=== PATIENT | male | born 1955 | race African-American/Black ===

== ENCOUNTER 2016-10-23 11:17 | Emergency (ER) | payer OTHER ==
[2016-10-23 11:39] VITALS: BP 156/89; PULSE 93; TEMP 98.7; BMI 34.0
--- NOTE | 2016-10-23 12:37 | PDOC ---
History of Present Illness - General Chief Complaint: Substance Abuse Stated Complaint: DETOX Time Seen by Provider: 10/23/16 11:56 History Source: Patient Exam Limitations: No Limitations - History of Present Illness Initial Comments: 10/23/16 12:46 61-year-old male presents to the ER for heroin detox program. patient states smokes daily and has high blood pressure but takes his medication daily and has no complaints presently of chest pain, shortness of breath, headache, dizziness , abdominal pain, vomiting, or diarrhea. Patient states has been using intranasal heroin for numerous years and at this point wants to stop using and requesting a program. Associated Symptoms: reports: denies symptoms Past History - Past Medical History Allergies/Adverse Reactions: Allergies Allergy/AdvReac Type Severity Reaction Status Date / Time No Known Allergies Allergy Unverified 10/23/16 11:35 Home Medications: Ambulatory Orders Aspirin [ASA -] 81 mg PO DAILY 07/03/15 Nifedipine [Procardia] 10 mg PO DAILY 07/03/15 HTN: Yes Other medical history: heroin abuse - Psycho/Social/Smoking Cessation Hx Anxiety: No Suicidal Ideation: No Smoking History: Current every day smoker Have you smoked in the past 12 months: Yes Number of Cigarettes Smoked Daily: 10 Information on smoking cessation initiated: Yes 'Breaking Loose' booklet given: 10/23/16 Hx Alcohol Use: No Drug/Substance Use Hx: Yes (heroin daily) Substance Use Type: Alcohol, Heroin Patient Lives Alone: No Lives with/in: spouse/SO Review of Systems - Review of Systems Able to Perform ROS?: Yes Constitutional: No: Symptoms Reported HEENTM: No: Symptoms Reported Respiratory: No: Symptoms reported Cardiac (ROS): No: Symptoms Reported ABD/GI: No: Symptoms Reported : No: Symptoms Reported Musculoskeletal: No: Symptoms Reported Integumentary: No: Symptoms Reported Neurological: No: Symptoms reported *Physical Exam - Vital Signs Last Vital Signs Temp Pulse Resp BP Pulse Ox 98.7 F 93 H 18 156/89 92 L 10/23/16 11:36 10/23/16 11:36 10/23/16 11:36 10/23/16 11:36 10/23/16 11:36 - Physical Exam General Appearance: Yes: Nourished, Appropriately Dressed. No: Apparent Distress HEENT: positive: EOMI, BETH. negative: Pale Conjunctivae Respiratory/Chest: positive: Lungs Clear, Normal Breath Sounds. negative: Respiratory Distress, Accessory Muscle Use Cardiovascular: positive: Regular Rhythm, Regular Rate. negative: Murmur Musculoskeletal: negative: CVA Tenderness Extremity: positive: Normal Capillary Refill. negative: Pedal Edema Integumentary: positive: Normal Color, Warm, Moist Neurologic: positive: Motor Strength 5/5 (ambulatory) Medical Decision Making - Medical Decision Making 10/23/16 12:51 Patient here requesting detox from intranasal heroin use. Patient has no complaints presently so called over to [facility] and states they have a male bed. Patient will be sent over via security. *DC/Admit/Observation/Transfer Diagnosis at time of Disposition: Heroin abuse - Discharge Dispostion Disposition: I.P. ALCOHOL/SUBS ABUSE REHAB Condition at time of disposition: Good - Patient Instructions Printed Discharge Instructions: Chemical Dependency (Narcotic) (Alternative Therapy) Additional Instructions: Please utilize the support that you will receive in this program.
== END 2016-10-23 13:12 | disposition other institution (70) ==
LOC: JER 11:17
DX: F11.10 Opioid abuse, uncomplicated (principal); I10 Essential (primary) hypertension
CPT/HCPCS: 99281-25

== ENCOUNTER 2016-10-23 12:53 | Inpatient (IN) | payer OTHER ==
[2016-10-23 13:44] VITALS: BMI 37.5
--- NOTE | 2016-10-23 14:31 | HP ---
COWS - Scale Resting Pulse: 1= [place] 81-100 Sweatin=Flushed/Facial Moisture Restless Observation: 1= Difficult to Sit Still Pupil Size: 0= Normal to Room Light Bone or Joint Aches: 2= Severe Diffuse Aches Runny Nose/ Eye Tearin= Runny Nose/Eyes GI Upset > 30mins: 0= None Tremor Observation: 2= Slight Tremor Visible Yawning Observation: 2= >3x During Session Anxiety or Irritability: 2=Irritable/Anxious Goose Flesh Skin: 0=Smooth Skin COWS Score: 14 CIWA Score - CIWA Score Nausea/Vomitin-No Nausea/No Vomiting Muscle Tremors: 4-Moderate,w/Arms Extend Anxiety: 4-Mod. Anxious/Guarded Agitation: 4-Moderately Restless Paroxysmal Sweats: 3 Orientation: 0-Oriented Tacttile Disturbances: 0-None Auditory Disturbances: 0-None Visual Disturbances: 0-None Headache: 0-None Present CIWA-Ar Total Score: 15 Admission ROS S - HPI Chief Complaint: I am here to detox. Allergies/Adverse Reactions: Allergies Allergy/AdvReac Type Severity Reaction Status Date / Time No Known Allergies Allergy Unverified 10/23/16 14:12 History of Present Illness: pt is a 61yr old male with a history of heroin and xanax seeking detox for treatment Exam Limitations: No Limitations - Ebola screening Have you traveled outside of the country in the last 21 days: No Have you had contact with anyone from an Ebola affected area: No Have you been sick,other than usual withdrawal symptoms: No - Review of Systems Constitutional: Chills, Diaphoresis, Night Sweats, Changes in sleep EENT: reports: Tearing Respiratory: reports: No Symptoms reported Cardiac: reports: No Symptoms Reported GI: reports: Poor Fluid Intake, Indigestion : reports: No Symptoms Reported Musculoskeletal: reports: Back Pain Integumentary: reports: Flushing, Sweating Neuro: reports: Tingling, Tremors Endocrine: reports: Excessive Sweating, Flushing, Intolerance to Cold, Intolerance to Heat Hematology: reports: No Symptoms Reported Psychiatric: reports: Judgement Intact, Mood/Affect Appropiate, Orientated x3, Agitated, Anxious Other Systems: Reviewed and Negative Patient History - Patient Medical History Hx Anemia: No Hx Asthma: No Hx Chronic Obstructive Pulmonary Disease (COPD): No Hx Cancer: No Hx Cardiac Disorders: No Hx Congestive Heart Failure: No Hx Hypertension: Yes Hx Hypercholesterolemia: Yes Hx Pacemaker: No HX Cerebrovascular Accident: No Hx Seizures: No Hx Dementia: No Hx Diabetes: No Hx Gastrointestinal Disorders: No Hx Liver Disease: No Hx Genitourinary Disorders: No Hx Sexually Transmitted Disorders: No Hx Renal Disease (ESRD): No Hx Thyroid Disease: No Hx Human Immunodeficiency Virus (HIV): Yes (diagnosed 1995 undetectable gemvoya. ) Hx Hepatitis C: No Hx Depression: No Hx Suicide Attempt: Yes (denies) Hx Bipolar Disorder: No Hx Schizophrenia: No - Patient Surgical History Hx Abdominal Surgery: Yes (UMBILICAL HERNIA) - PPD History Previous Implant?: Yes Documented Results: Negative w/o proof Implanted On Prior [facility] Admission?: No PPD to be Administered?: Yes - Reproductive History Patient is a Female of Child Bearing Age (11 -55 yrs old): No - Smoking Cessation Smoking history: Current every day smoker Have you smoked in the past 12 months: Yes Aproximately how many cigarettes per day: 10 Hx Chewing Tobacco Use: No Initiated information on smoking cessation: Yes 'Breaking Loose' booklet given: 10/23/16 - Substance & Tx. History Hx Alcohol Use: No Hx Substance Use: Yes Substance Use Type: Heroin, Tranquilizers Hx Substance Use Treatment: Yes - Substances Abused Heroin Route: Inhalation Frequency: Daily Amount used: 10-20 BAGS Age of first use: 14 Date of Last Use: 10/23/16 Alprazolam (Xanax) Route: Oral Frequency: Daily Amount used: 4-6MG Age of first use: 61 Date of Last Use: 10/22/16 Family Disease History - Family Disease History Family Disease History: Heart Disease: Mother () Admission Physical Exam [facility] - Vital Signs Vital Signs: Vital Signs - 24 hr 10/23/16 13:42 Temperature 98 F Pulse Rate 90 Respiratory 20 Rate Blood Pressure 162/95 - Physical General Appearance: Yes: Appropriately Dressed, Moderate Distress, Obese, Tremorous, Irritable, Sweating, Anxious HEENTM: Yes: Hearing grossly Normal, Normal Voice, Nasal Congestion Respiratory: Yes: Lungs Clear, Normal Breath Sounds, No Respiratory Distress Neck: Yes: No masses,lesions,Nodules Breast: Yes: Within Normal Limits Cardiology: Yes: Regular Rhythm, Regular Rate, S1, S2 Abdominal: Yes: Normal Bowel Sounds, Non Tender, Soft Genitourinary: Yes: Within Normal Limits Back: Yes: Normal Inspection Musculoskeletal: Yes: Back pain Extremities: Yes: Normal Capillary Refill, Normal Inspection, Non-Tender, Tremors Neurological: Yes: Fully Oriented, Alert, Normal Response Integumentary: Yes: Diaphoresis Lymphatic: Yes: Within Normal Limits - Diagnostic (1) Opioid dependence with withdrawal Current Visit: Yes Status: Chronic (2) Sedative, hypnotic or anxiolytic dependence with withdrawal, uncomplicated Current Visit: Yes Status: Chronic (3) Nicotine dependence Current Visit: Yes Status: Chronic Qualifiers: Nicotine product type: cigarettes Substance use status: uncomplicated Qualified Code(s): F17.210 - Nicotine dependence, cigarettes, uncomplicated (4) HIV disease Current Visit: Yes Status: Chronic Comment: pt is taking gemboya pt will bring in his own medication (5) Hypertension Current Visit: Yes Status: Chronic Qualifiers: Hypertension type: essential hypertension Qualified Code(s): I10 - Essential (primary) hypertension (6) Hyperlipidemia Current Visit: Yes Status: Chronic Qualifiers: Hyperlipidemia type: unspecified Qualified Code(s): E78.5 - Hyperlipidemia, unspecified Cleared for Admission [facility] - Detox or Rehab [facility] Level of Care: Medically Managed Detox Regimen/Protocol: Methadone/Valium [facility] Breath Alcohol Content Breath Alcohol Content: 0 Urine Drug Screen - Results Drug Screen Negative: No Urine Drug Screen Results: OPI-Opiates, BZO-Benzodiazepines, OXY-Oxycodone
[2016-10-23] MEDS ORDERED: guaiFENesin/D-METHORPHAN HB 10 ML UNIT-DOSE CUPS PO PRN (14:40)
[2016-10-23] MEDS ORDERED: MENTHOL/PHENOL 1 EACH UD MM PRN (14:40)
[2016-10-23] MEDS ORDERED: MAGNESIUM CITRATE 300 ML BOTTLE PO PRN (14:40)
[2016-10-23] MEDS ORDERED: NICOTINE POLACRILEX 4 MG GUM BUC PRN (14:40)
[2016-10-23] MEDS ORDERED: P-EPHED 60MG/TRIPROLIDI 2.5MG TABLET PO PRN (14:40)
[2016-10-23] MEDS ORDERED: MAGNESIUM HYDROX 2400MG/30ML ORAL SUSPENSION 30 ML CUP PO PRN (14:40)
[2016-10-23] MEDS ORDERED: MAG HYDROX/AL HYDROX/SIMETH 30 ML UNIT-DOSE CUP PO PRN (14:40)
[2016-10-23] MEDS ORDERED: LOPERAMIDE HCL 2 MG CAPSULE PO PRN (14:40)
[2016-10-23] MEDS ORDERED: ACETAMINOPHEN 325 MG TABLET (FP) PO PRN (14:40)
[2016-10-23] MEDS ORDERED: diazePAM 5 MG TABLET PO ONE (15:30)
[2016-10-23] MEDS ORDERED: METHADONE HCL 10 MG TABLET (FOR DETOX USE ONLY) PO ONE ×2 (15:32→23:00)
[2016-10-23 18:58] LABS: URINE APPEARANCE CLEAR; URINE BILIRUBIN NEGATIVE (NEGATIVE); URINE BLOOD NEGATIVE (NEGATIVE); URINE COLOR YELLOW; URINE GLUCOSE (UA) NEGATIVE (NEGATIVE); URINE KETONE NEGATIVE (NEGATIVE); URINE LEUK ESTERASE NEGATIVE (NEGATIVE); URINE NITRITE NEGATIVE (NEGATIVE); URINE PROTEIN NEGATIVE (NEGATIVE); URINE UROBILINOGEN 2.0 E.U/dl E.U./dl (0.2-1.0)
[2016-10-23] MEDS: THIAMINE HCL 100 MG TABLET (FP) PO SCH (22:36)
[2016-10-23] MEDS: diphenhydrAMINE HCL 50 MG CAPSULE PO PRN (22:37)
[2016-10-23] MEDS: diazePAM 5 MG TABLET PO SCH (22:37)
[2016-10-24] MEDS: diazePAM 5 MG TABLET PO SCH ×3 (05:39→22:34)
[2016-10-24] MEDS: diazePAM 5 MG TABLET PO PRN ×3 (07:15→17:32)
[2016-10-24] MEDS ORDERED: METHADONE HCL 10 MG TABLET (FOR DETOX USE ONLY) PO SCH (10:00)
[2016-10-24 10:14] LABS: MCH 31.7 pg (25.7-33.7); MCHC 32.4 g/dl (32.0-35.9); MEAN PLT VOLUME 8.9 fl (7.5-11.1); PLATELET COUNT 177 K/MM3 (134-434); RDW 14.1 % (11.9-15.9); WHITE BLOOD COUNT 7.2 K/mm3 (4.0-10.0)
[2016-10-24 10:15] LABS: ALBUMIN 3.5 g/dl (3.4-5.0); BILIRUBIN,TOTAL 0.6 mg/dL (0.2-1.0); CALCIUM 8.9 mg/dL (8.5-10.1); COCKROFT - GAULT 99.7; CREATININE 1.3 mg/dL (0.7-1.3); TOT PROT 7.1 g/dl (6.4-8.2)
[2016-10-24] MEDS: NICOTINE 21 MG/24 HOURS TOPICAL PATCH TD SCH (10:29)
[2016-10-24] MEDS: PRENATAL VITAMINS W/ FOLIC ACID TABLET (FP) PO SCH (10:29)
[2016-10-24] MEDS: ASPIRIN 81 MG CHEWABLE TABLETS PO SCH (10:29)
[2016-10-24] MEDS: LOSARTAN 50MG/HCTZ 12.5MG 1 TAB (FP) PO SCH (10:29)
--- NOTE | 2016-10-24 11:26 | PN ---
[facility] CIWA - CIWA Score Nausea/Vomitin-No Nausea/No Vomiting Muscle Tremors: 4-Moderate,w/Arms Extend Anxiety: 4-Mod. Anxious/Guarded Agitation: 4-Moderately Restless Paroxysmal Sweats: 1-Minimal Palms Moist Orientation: 0-Oriented Tacttile Disturbances: 3-Moderate Itch/Numb/Burn Auditory Disturbances: 0-None Visual Disturbances: 0-None Headache: 0-None Present CIWA-Ar Total Score: 16 [facility] COWS - Scale Resting Pulse: 1= SD 81-100 Sweatin= Chills/Flushing Restless Observation: 3= Extraneous Movement Pupil Size: 2= Moderately Dilated Bone or Joint Aches: 4=Acute Joint/Muscle Pain Runny Nose/ Eye Tearin= Nasal Congestion GI Upset > 30mins: 1= Stomach Cramp Tremor Observation of Outstretched Hands: 1= Tremor [place], Not Seen Yawning Observation: 1= 1-2x During Session Anxiety or Irritability: 2=Irritable/Anxious Goose Flesh Skin: 0=Smooth Skin COWS Score: 17 [facility] Progress Note (SOAP) Subjective: ANXIETY,SWEATS,RUNNY NOSE,IRRITABILITY. Objective: 10/24/16 11:25 Vital Signs Temperature 96.7 F L 10/24/16 09:43 Pulse Rate 89 10/24/16 09:43 Respiratory Rate 18 10/24/16 09:43 Blood Pressure 152/94 10/24/16 09:43 O2 Sat by Pulse Oximetry (%) Laboratory Last Values WBC 7.2 K/mm3 (4.0-10.0) 10/24/16 06:00 RBC 4.49 M/mm3 (4.00-5.60) 10/24/16 06:00 Hgb 14.2 GM/dL (11.7-16.9) 10/24/16 06:00 Hct 44.0 % (35.4-49) 10/24/16 06:00 MCV 98.0 fl (80-96) H 10/24/16 06:00 MCHC 32.4 g/dl (32.0-35.9) 10/24/16 06:00 RDW 14.1 % (11.9-15.9) D 10/24/16 06:00 Plt Count 177 K/MM3 (134-434) 10/24/16 06:00 MPV 8.9 fl (7.5-11.1) 10/24/16 06:00 Sodium 140 mmol/L (136-145) 10/24/16 06:00 Potassium 4.0 mmol/L (3.5-5.1) 10/24/16 06:00 Chloride 102 mmol/L (98-107) 10/24/16 06:00 Carbon Dioxide 32 mmol/L (21-32) 10/24/16 06:00 Anion Gap 6 (8-16) L 10/24/16 06:00 BUN 12 mg/dL (7-18) 10/24/16 06:00 Creatinine 1.3 mg/dL (0.7-1.3) 10/24/16 06:00 Creat Clearance w eGFR 56.50 (>60) 10/24/16 06:00 POC Glucometer 101 UNITS (()) 10/24/16 06:22 Random Glucose 132 mg/dL (74-106) H 10/24/16 06:00 Calcium 8.9 mg/dL (8.5-10.1) 10/24/16 06:00 Total Bilirubin 0.6 mg/dL (0.2-1.0) D 10/24/16 06:00 AST 26 U/L (15-37) 10/24/16 06:00 ALT 41 U/L (12-78) 10/24/16 06:00 Alkaline Phosphatase 102 U/L (45-117) 10/24/16 06:00 Total Protein 7.1 g/dl (6.4-8.2) 10/24/16 06:00 Albumin 3.5 g/dl (3.4-5.0) 10/24/16 06:00 Urine Color Yellow 10/23/16 15:00 Urine Appearance Clear 10/23/16 15:00 Urine pH 7.0 (5.0-8.0) 10/23/16 15:00 Ur Specific [place] 1.015 (1.005-1.025) 10/23/16 15:00 Urine Protein Negative (NEGATIVE) 10/23/16 15:00 Urine Glucose (UA) Negative (NEGATIVE) 10/23/16 15:00 Urine Ketones Negative (NEGATIVE) 10/23/16 15:00 Urine Blood Negative (NEGATIVE) 10/23/16 15:00 Urine Nitrite Negative (NEGATIVE) 10/23/16 15:00 Urine Bilirubin Negative (NEGATIVE) 10/23/16 15:00 Urine Urobilinogen 2.0 e.u/dl E.U./dl (0.2-1.0) 10/23/16 15:00 Ur Leukocyte Esterase Negative (NEGATIVE) 10/23/16 15:00 Assessment: 10/24/16 11:25 WITHDRAWAL SX Plan: CONTINUE DETOX
--- NOTE | 2016-10-24 12:51 | EKG ---
Test Reason : Blood Pressure : / mmHG Vent. Rate : 082 BPM Atrial Rate : 082 BPM P-R Int : 176 ms QRS Dur : 084 ms QT Int : 362 ms P-R-T Axes : 034 -18 019 degrees QTc Int : 422 ms NORMAL SINUS RHYTHM NORMAL ECG WHEN COMPARED WITH ECG OF 03-JUL-2015 15:50, NO SIGNIFICANT CHANGE WAS FOUND Confirmed by IRASEMA UP MD ([id number]) on 10/24/2016 12:50:53 PM Referred By: Confirmed By:IRASEMA UP MD
--- NOTE | 2016-10-24 13:55 | CONSULT ---
[facility] Psychiatric Consult - Data Date of interview: 10/24/16 Admission source: [facility] Identifying data: Patient is appproached at bedside for psychiatric evaluation.Mr Hdz refused. " I have no psychiatric issues.I am fine.Please leave.I don't need your services.Thanks." Nursing staff is made aware.
[2016-10-24] MEDS: THIAMINE HCL 100 MG TABLET (FP) PO SCH (22:34)
[2016-10-24] MEDS: diphenhydrAMINE HCL 50 MG CAPSULE PO PRN (22:34)
[2016-10-24] MEDS: ARTIFICIAL TEARS (POLYVINYL ALCOHOL 1.4%) OPTH DROPS OU SCH (23:01)
[2016-10-24] MEDS: hydrOXYzine PAMOATE 50 MG CAPSULE (FP) PO PRN (23:44)
[2016-10-25] MEDS: diazePAM 5 MG TABLET PO PRN ×3 (00:27→17:18)
[2016-10-25] MEDS ORDERED: CYCLOBENZAPRINE HCL 10 MG TABLET (FP) PO PRN (01:34)
[2016-10-25] MEDS: IBUPROFEN 400 MG TABLET (FP) PO PRN (01:50)
[2016-10-25] MEDS: ASPIRIN 81 MG CHEWABLE TABLETS PO SCH (10:28)
[2016-10-25] MEDS: ARTIFICIAL TEARS (POLYVINYL ALCOHOL 1.4%) OPTH DROPS OU SCH ×4 (10:28→22:35)
[2016-10-25] MEDS: diazePAM 5 MG TABLET PO SCH ×2 (10:28→22:35)
[2016-10-25] MEDS: PRENATAL VITAMINS W/ FOLIC ACID TABLET (FP) PO SCH (10:28)
[2016-10-25] MEDS: METHADONE HCL 5 MG TABLET (FOR DETOX USE ONLY) PO SCH (10:28)
[2016-10-25] MEDS: LOSARTAN 50MG/HCTZ 12.5MG 1 TAB (FP) PO SCH (10:29)
[2016-10-25] MEDS: NICOTINE 21 MG/24 HOURS TOPICAL PATCH TD SCH (10:29)
--- NOTE | 2016-10-25 11:46 | PN ---
[facility] CIWA - CIWA Score Nausea/Vomitin-No Nausea/No Vomiting Muscle Tremors: 4-Moderate,w/Arms Extend Anxiety: 4-Mod. Anxious/Guarded Agitation: 4-Moderately Restless Paroxysmal Sweats: 1-Minimal Palms Moist Orientation: 0-Oriented Tacttile Disturbances: 3-Moderate Itch/Numb/Burn Auditory Disturbances: 0-None Visual Disturbances: 0-None Headache: 0-None Present CIWA-Ar Total Score: 16 S COWS - Scale Resting Pulse: 0= [place] 80 or Below Sweatin= Chills/Flushing Restless Observation: 3= Extraneous Movement Pupil Size: 2= Moderately Dilated Bone or Joint Aches: 4=Acute Joint/Muscle Pain Runny Nose/ Eye Tearin= Nasal Congestion GI Upset > 30mins: 5=Frequent Vomit/Diarrhea Tremor Observation of Outstretched Hands: 1= Tremor [place], Not Seen Yawning Observation: 1= 1-2x During Session Anxiety or Irritability: 2=Irritable/Anxious Goose Flesh Skin: 0=Smooth Skin COWS Score: 20 [facility] Progress Note (SOAP) Subjective: ANXIETY,SWEATS,MUSCLE ACHES. Objective: 10/25/16 11:45 Vital Signs Temperature 97.3 F L 10/25/16 09:26 Pulse Rate 79 10/25/16 09:26 Respiratory Rate 18 10/25/16 09:26 Blood Pressure 143/73 10/25/16 09:26 O2 Sat by Pulse Oximetry (%) Laboratory Last Values WBC 7.2 K/mm3 (4.0-10.0) 10/24/16 06:00 RBC 4.49 M/mm3 (4.00-5.60) 10/24/16 06:00 Hgb 14.2 GM/dL (11.7-16.9) 10/24/16 06:00 Hct 44.0 % (35.4-49) 10/24/16 06:00 MCV 98.0 fl (80-96) H 10/24/16 06:00 MCHC 32.4 g/dl (32.0-35.9) 10/24/16 06:00 RDW 14.1 % (11.9-15.9) D 10/24/16 06:00 Plt Count 177 K/MM3 (134-434) 10/24/16 06:00 MPV 8.9 fl (7.5-11.1) 10/24/16 06:00 Sodium 140 mmol/L (136-145) 10/24/16 06:00 Potassium 4.0 mmol/L (3.5-5.1) 10/24/16 06:00 Chloride 102 mmol/L (98-107) 10/24/16 06:00 Carbon Dioxide 32 mmol/L (21-32) 10/24/16 06:00 Anion Gap 6 (8-16) L 10/24/16 06:00 BUN 12 mg/dL (7-18) 10/24/16 06:00 Creatinine 1.3 mg/dL (0.7-1.3) 10/24/16 06:00 Creat Clearance w eGFR 56.50 (>60) 10/24/16 06:00 POC Glucometer 101 UNITS (()) 10/24/16 06:22 Random Glucose 132 mg/dL (74-106) H 10/24/16 06:00 Calcium 8.9 mg/dL (8.5-10.1) 10/24/16 06:00 Total Bilirubin 0.6 mg/dL (0.2-1.0) D 10/24/16 06:00 AST 26 U/L (15-37) 10/24/16 06:00 ALT 41 U/L (12-78) 10/24/16 06:00 Alkaline Phosphatase 102 U/L (45-117) 10/24/16 06:00 Total Protein 7.1 g/dl (6.4-8.2) 10/24/16 06:00 Albumin 3.5 g/dl (3.4-5.0) 10/24/16 06:00 Urine Color Yellow 10/23/16 15:00 Urine Appearance Clear 10/23/16 15:00 Urine pH 7.0 (5.0-8.0) 10/23/16 15:00 Ur Specific [place] 1.015 (1.005-1.025) 10/23/16 15:00 Urine Protein Negative (NEGATIVE) 10/23/16 15:00 Urine Glucose (UA) Negative (NEGATIVE) 10/23/16 15:00 Urine Ketones Negative (NEGATIVE) 10/23/16 15:00 Urine Blood Negative (NEGATIVE) 10/23/16 15:00 Urine Nitrite Negative (NEGATIVE) 10/23/16 15:00 Urine Bilirubin Negative (NEGATIVE) 10/23/16 15:00 Urine Urobilinogen 2.0 e.u/dl E.U./dl (0.2-1.0) 10/23/16 15:00 Ur Leukocyte Esterase Negative (NEGATIVE) 10/23/16 15:00 RPR Titer Nonreactive (NONREACTIVE) 10/24/16 06:00 Assessment: 10/25/16 11:45 WITHDRAWAL SX Plan: CONTINUE DETOX FLEXERIL DIRECTED
[2016-10-25] MEDS: CYCLOBENZAPRINE HCL 10 MG TABLET (FP) PO SCH ×2 (14:13→22:35)
[2016-10-25] MEDS: hydrOXYzine PAMOATE 50 MG CAPSULE (FP) PO PRN (20:14)
[2016-10-25] MEDS: THIAMINE HCL 100 MG TABLET (FP) PO SCH (22:35)
[2016-10-25] MEDS: diphenhydrAMINE HCL 50 MG CAPSULE PO PRN (22:35)
[2016-10-26] MEDS: diazePAM 5 MG TABLET PO PRN (03:14)
[2016-10-26] MEDS: CYCLOBENZAPRINE HCL 10 MG TABLET (FP) PO SCH ×3 (05:52→22:30)
[2016-10-26] MEDS: PRENATAL VITAMINS W/ FOLIC ACID TABLET (FP) PO SCH (10:34)
[2016-10-26] MEDS: diazePAM 5 MG TABLET PO SCH ×2 (10:34→22:30)
[2016-10-26] MEDS: ASPIRIN 81 MG CHEWABLE TABLETS PO SCH (10:34)
[2016-10-26] MEDS: METHADONE HCL 5 MG TABLET (FOR DETOX USE ONLY) PO SCH (10:35)
[2016-10-26] MEDS: LOSARTAN 50MG/HCTZ 12.5MG 1 TAB (FP) PO SCH (10:36)
[2016-10-26] MEDS: ARTIFICIAL TEARS (POLYVINYL ALCOHOL 1.4%) OPTH DROPS OU SCH ×4 (10:38→22:31)
[2016-10-26] MEDS: NICOTINE 21 MG/24 HOURS TOPICAL PATCH TD SCH (11:09)
[2016-10-26] MEDS ORDERED: hydrOXYzine PAMOATE 50 MG CAPSULE (FP) PO PRN (11:49)
--- NOTE | 2016-10-26 11:49 | PN ---
[facility] Progress Note (SOAP) Subjective: FATIGUE,ANXIETY,SWEATS,INTERMITTENT SLEEP..BENADRYL NOT EFFECTIVE. Objective: 10/26/16 11:48 Vital Signs Temperature 97.8 F 10/26/16 10:25 Pulse Rate 106 H 10/26/16 10:25 Respiratory Rate 18 10/26/16 10:25 Blood Pressure 145/90 10/26/16 10:25 O2 Sat by Pulse Oximetry (%) Assessment: 10/26/16 11:48 WITHDRAWAL SX Plan: CONTINUE DETOX D/C BENADRYL VIASTARIL 100 MG PO HS PRN
[2016-10-26] MEDS: hydrOXYzine PAMOATE 50 MG CAPSULE (FP) PO PRN (17:19)
[2016-10-26] MEDS: THIAMINE HCL 100 MG TABLET (FP) PO SCH (22:30)
[2016-10-26] MEDS: diphenhydrAMINE HCL 50 MG CAPSULE PO PRN (22:30)
[2016-10-27] MEDS: hydrOXYzine PAMOATE 50 MG CAPSULE (FP) PO PRN ×2 (01:51→06:18)
[2016-10-27] MEDS: CYCLOBENZAPRINE HCL 10 MG TABLET (FP) PO SCH ×3 (05:20→22:33)
[2016-10-27] MEDS ORDERED: METHADONE HCL 10 MG TABLET (FOR DETOX USE ONLY) PO SCH (10:00)
[2016-10-27] MEDS ORDERED: diazePAM 5 MG TABLET PO SCH (10:00)
[2016-10-27] MEDS: PRENATAL VITAMINS W/ FOLIC ACID TABLET (FP) PO SCH (10:49)
[2016-10-27] MEDS: ARTIFICIAL TEARS (POLYVINYL ALCOHOL 1.4%) OPTH DROPS OU SCH ×4 (10:49→22:55)
[2016-10-27] MEDS: LOSARTAN 50MG/HCTZ 12.5MG 1 TAB (FP) PO SCH (10:49)
[2016-10-27] MEDS: ASPIRIN 81 MG CHEWABLE TABLETS PO SCH (10:49)
[2016-10-27] MEDS: NICOTINE 21 MG/24 HOURS TOPICAL PATCH TD SCH (10:50)
--- NOTE | 2016-10-27 16:21 | PN ---
[facility] Progress Note (SOAP) Subjective: Interrupted sleep, Sweating. Objective: PT. A & O X 3, OBSERVED AMBULATING ON UNIT. PT. DENIES CHEST PAIN. 10/27/16 16:19 Vital Signs Temperature 98.3 F 10/27/16 13:20 Pulse Rate 89 10/27/16 13:20 Respiratory Rate 20 10/27/16 13:20 Blood Pressure 129/84 10/27/16 13:20 O2 Sat by Pulse Oximetry (%) Laboratory Last Values WBC 7.2 K/mm3 (4.0-10.0) 10/24/16 06:00 RBC 4.49 M/mm3 (4.00-5.60) 10/24/16 06:00 Hgb 14.2 GM/dL (11.7-16.9) 10/24/16 06:00 Hct 44.0 % (35.4-49) 10/24/16 06:00 MCV 98.0 fl (80-96) H 10/24/16 06:00 MCHC 32.4 g/dl (32.0-35.9) 10/24/16 06:00 RDW 14.1 % (11.9-15.9) D 10/24/16 06:00 Plt Count 177 K/MM3 (134-434) 10/24/16 06:00 MPV 8.9 fl (7.5-11.1) 10/24/16 06:00 Sodium 140 mmol/L (136-145) 10/24/16 06:00 Potassium 4.0 mmol/L (3.5-5.1) 10/24/16 06:00 Chloride 102 mmol/L (98-107) 10/24/16 06:00 Carbon Dioxide 32 mmol/L (21-32) 10/24/16 06:00 Anion Gap 6 (8-16) L 10/24/16 06:00 BUN 12 mg/dL (7-18) 10/24/16 06:00 Creatinine 1.3 mg/dL (0.7-1.3) 10/24/16 06:00 Creat Clearance w eGFR 56.50 (>60) 10/24/16 06:00 POC Glucometer 101 UNITS (()) 10/24/16 06:22 Random Glucose 132 mg/dL (74-106) H 10/24/16 06:00 Calcium 8.9 mg/dL (8.5-10.1) 10/24/16 06:00 Total Bilirubin 0.6 mg/dL (0.2-1.0) D 10/24/16 06:00 AST 26 U/L (15-37) 10/24/16 06:00 ALT 41 U/L (12-78) 10/24/16 06:00 Alkaline Phosphatase 102 U/L (45-117) 10/24/16 06:00 Total Protein 7.1 g/dl (6.4-8.2) 10/24/16 06:00 Albumin 3.5 g/dl (3.4-5.0) 10/24/16 06:00 Urine Color Yellow 10/23/16 15:00 Urine Appearance Clear 10/23/16 15:00 Urine pH 7.0 (5.0-8.0) 10/23/16 15:00 Ur Specific [place] 1.015 (1.005-1.025) 10/23/16 15:00 Urine Protein Negative (NEGATIVE) 10/23/16 15:00 Urine Glucose (UA) Negative (NEGATIVE) 10/23/16 15:00 Urine Ketones Negative (NEGATIVE) 10/23/16 15:00 Urine Blood Negative (NEGATIVE) 10/23/16 15:00 Urine Nitrite Negative (NEGATIVE) 10/23/16 15:00 Urine Bilirubin Negative (NEGATIVE) 10/23/16 15:00 Urine Urobilinogen 2.0 e.u/dl E.U./dl (0.2-1.0) 10/23/16 15:00 Ur Leukocyte Esterase Negative (NEGATIVE) 10/23/16 15:00 RPR Titer Nonreactive (NONREACTIVE) 10/24/16 06:00 LABS NOTED. 10/27/16 16:20 Assessment: 10/27/16 16:20 WITHDRAWAL SYMPTOMS. Plan: CONTINUE DETOX. ADVISED PATIENT TO FOLLOW-UP WITH PASSENGER TIRE INSPECTOR AFTER DISCHARGE FROM DETOX FOR GENERAL MEDICAL ASSESSMENT AND FOR ABNORMAL ADMISSION LAB VALUES.
[2016-10-27] MEDS: diphenhydrAMINE HCL 50 MG CAPSULE PO PRN (22:33)
[2016-10-27] MEDS: THIAMINE HCL 100 MG TABLET (FP) PO SCH (22:33)
[2016-10-27] MEDS: IBUPROFEN 400 MG TABLET (FP) PO PRN (22:34)
[2016-10-28] MEDS: CYCLOBENZAPRINE HCL 10 MG TABLET (FP) PO SCH (05:34)
[2016-10-28] MEDS ORDERED: METHADONE HCL 5 MG TABLET (FOR DETOX USE ONLY) PO SCH (06:00)
[2016-10-28 06:40] VITALS: BP 154/87; PULSE 69; TEMP 96.9
--- NOTE | 2016-10-28 15:53 | DS ---
[facility] Detox Discharge Summary Admission Date: 10/23/16 Discharge Date: 10/28/16 - History Present History: Opioid Dependence, Sedative Dependence Additional Comments: ADVISED PATIENT TO FOLLOW-UP WITH [employer] MACHINE WORKER AFTER DISCHARGE FROM DETOX FOR GENERAL MEDICAL ASSESSMENT AND FOR ABNORMAL ADMISSION LAB VALUES. Pertinent Past History: HTN, HIV +, Hypercholesterolemia. - Physical Exam Results Vital Signs: Vital Signs Temperature 96.9 F L 10/28/16 06:40 Pulse Rate 69 10/28/16 06:40 Respiratory Rate 18 10/28/16 06:40 Blood Pressure 154/87 10/28/16 06:40 O2 Sat by Pulse Oximetry (%) Pertinent Admission Physical Exam Findings: WITHDRAWAL SYMPTOMS. Laboratory Last Values WBC 7.2 K/mm3 (4.0-10.0) 10/24/16 06:00 RBC 4.49 M/mm3 (4.00-5.60) 10/24/16 06:00 Hgb 14.2 GM/dL (11.7-16.9) 10/24/16 06:00 Hct 44.0 % (35.4-49) 10/24/16 06:00 MCV 98.0 fl (80-96) H 10/24/16 06:00 MCHC 32.4 g/dl (32.0-35.9) 10/24/16 06:00 RDW 14.1 % (11.9-15.9) D 10/24/16 06:00 Plt Count 177 K/MM3 (134-434) 10/24/16 06:00 MPV 8.9 fl (7.5-11.1) 10/24/16 06:00 Sodium 140 mmol/L (136-145) 10/24/16 06:00 Potassium 4.0 mmol/L (3.5-5.1) 10/24/16 06:00 Chloride 102 mmol/L (98-107) 10/24/16 06:00 Carbon Dioxide 32 mmol/L (21-32) 10/24/16 06:00 Anion Gap 6 (8-16) L 10/24/16 06:00 BUN 12 mg/dL (7-18) 10/24/16 06:00 Creatinine 1.3 mg/dL (0.7-1.3) 10/24/16 06:00 Creat Clearance w eGFR 56.50 (>60) 10/24/16 06:00 POC Glucometer 101 UNITS (()) 10/24/16 06:22 Random Glucose 132 mg/dL (74-106) H 10/24/16 06:00 Calcium 8.9 mg/dL (8.5-10.1) 10/24/16 06:00 Total Bilirubin 0.6 mg/dL (0.2-1.0) D 10/24/16 06:00 AST 26 U/L (15-37) 10/24/16 06:00 ALT 41 U/L (12-78) 10/24/16 06:00 Alkaline Phosphatase 102 U/L (45-117) 10/24/16 06:00 Total Protein 7.1 g/dl (6.4-8.2) 10/24/16 06:00 Albumin 3.5 g/dl (3.4-5.0) 10/24/16 06:00 Urine Color Yellow 10/23/16 15:00 Urine Appearance Clear 10/23/16 15:00 Urine pH 7.0 (5.0-8.0) 10/23/16 15:00 Ur Specific [place] 1.015 (1.005-1.025) 10/23/16 15:00 Urine Protein Negative (NEGATIVE) 10/23/16 15:00 Urine Glucose (UA) Negative (NEGATIVE) 10/23/16 15:00 Urine Ketones Negative (NEGATIVE) 10/23/16 15:00 Urine Blood Negative (NEGATIVE) 10/23/16 15:00 Urine Nitrite Negative (NEGATIVE) 10/23/16 15:00 Urine Bilirubin Negative (NEGATIVE) 10/23/16 15:00 Urine Urobilinogen 2.0 e.u/dl E.U./dl (0.2-1.0) 10/23/16 15:00 Ur Leukocyte Esterase Negative (NEGATIVE) 10/23/16 15:00 RPR Titer Nonreactive (NONREACTIVE) 10/24/16 06:00 LABS NOTED. - Treatment Hospital Course: Detox Protocol Followed, Detoxed Safely, Responded well, Discharged Condition Good Patient has Accepted a Rehab Referral to: YES - PT. WILL PURSUE ADMISSION TO [facility] TOMORROW. - Medication Discharge Medications: Ambulatory Orders Aspirin [ASA -] 81 mg PO DAILY 07/03/15 Elviteg/Tia/Emtric/Tenofo Ala [Genvoya Tablet] 1 each PO DAILY 10/23/16 Losartan/Hydrochlorothiazide [Losartan-Hctz 50-12.5 mg Tab] 1 each PO DAILY 03/03 - Diagnosis (1) HIV disease Status: Chronic (2) Hyperlipidemia Status: Chronic Qualifiers: Hyperlipidemia type: unspecified Qualified Code(s): E78.5 - Hyperlipidemia, unspecified (3) Hypertension Status: Chronic Qualifiers: Hypertension type: essential hypertension Qualified Code(s): I10 - Essential (primary) hypertension (4) Nicotine dependence Status: Chronic Qualifiers: Nicotine product type: cigarettes Substance use status: uncomplicated Qualified Code(s): F17.210 - Nicotine dependence, cigarettes, uncomplicated (5) Opioid dependence with withdrawal Status: Acute (6) Sedative, hypnotic or anxiolytic dependence with withdrawal, uncomplicated Status: Acute - AMA Did Patient Leave Against Medical Advice: No
== END 2016-10-28 08:45 | disposition home or self-care (01) | DRG 773 ==
LOC: YASAS 12:53 → Y3N 15:25
PROVIDERS: ADMIT Internal Medicine Addiction Medicine; ATTEND Internal Medicine Addiction Medicine
PROC: HZ2ZZZZ Detoxification Services for Substance Abuse Treatment (ICD-10-PCS; principal; 2016-10-28)
DX: F11.23 Opioid dependence with withdrawal (principal); F13.230 Sedative, hypnotic or anxiolytic dependence with withdrawal, uncomplicated; F17.210 Nicotine dependence, cigarettes, uncomplicated; I10 Essential (primary) hypertension; Z21 Asymptomatic human immunodeficiency virus [HIV] infection status; E78.5 Hyperlipidemia, unspecified
CPT/HCPCS: 36415; 80053; 81003; 85027; 86593; 93005; 93010

== ENCOUNTER 2019-07-07 10:34 | Day surgery (SDC) | payer OTHER ==
[2019-07-03 18:28] VITALS: BMI 37.5
[2019-07-07] MEDS ORDERED: LIDOCAINE HCL 1%, 10 MG/ML (20ML VIAL) ONE (11:16)
[2019-07-07] MEDS ORDERED: MIDAZOLAM HCL 2 MG/2 ML SINGLE DOSE VIAL ONE ×2 (11:46)
[2019-07-07] MEDS ORDERED: ceFAZolin SODIUM 1 GM VIAL IVPB ONE (13:02)
[2019-07-07] MEDS ORDERED: ROCURONIUM BROMIDE 50 MG/5 ML SYRINGE ONE (13:39)
[2019-07-07] MEDS ORDERED: PROPOFOL 20 ML ONE ×2 (13:39)
[2019-07-07] MEDS ORDERED: SUCCINYLCHOLINE CHLORIDE 200 MG/10 ML SYRINGE ONE (13:39)
--- NOTE | 2019-07-07 14:42 | OP ---
Operative Note - Note: Operative Date: 07/07/19 Pre-Operative Diagnosis: Incisional hernia (supraumbilical, incarcerated) Operation: Open repair abdominal incisonal hernia with mesh Findings: Incarcerated hernia with fat Post-Operative Diagnosis: Same as Pre-op Surgeon: Isrrael Riley Application Trainer: Tony Campbell Anesthesiologist/WAX ROOM SUPERVISOR: Moises Thomas Anesthesia: General Specimens Removed: Incarcerated incisional hernia fat Estimated Blood Loss (mls): 5 Fluid Volume Replaced (mls): 500 Operative Report Dictated: Yes
[2019-07-07] MEDS ORDERED: NEOSTIGMINE METHYLSULFATE 0.5 MG/1 ML - 10 ML MDV ONE (14:50)
[2019-07-07] MEDS ORDERED: ONDANSETRON 4 MG/2 ML VIAL IVPUSH PRN ×2 (16:03→19:07)
[2019-07-07] MEDS ORDERED: oxyCODONE HCL 5 MG TABLET PO PRN (16:03)
[2019-07-07] MEDS ORDERED: LACTATED RINGERS SOLUTION 1,000 ML IV SCH (16:15)
[2019-07-07] MEDS ORDERED: oxyCODONE HCL 5 MG TABLET ONE (17:30)
[2019-07-07] MEDS ORDERED: oxyCODONE HCL 5 MG TABLET PO ONE (17:33)
[2019-07-07] MEDS ORDERED: KETOROLAC TROMETHAMINE 30 MG/1 ML VIAL IVPUSH ONE (17:58)
[2019-07-07] MEDS ORDERED: ACETAMINOPHEN 1000 MG/100 ML VIAL (NON FORMULARY) IVPB ONE ×2 (17:58→18:05)
[2019-07-07] MEDS ORDERED: KETOROLAC TROMETHAMINE 30 MG/1 ML VIAL ONE (18:03)
[2019-07-07] MEDS ORDERED: ACETAMINOPHEN INJECTION 100 ML IVPB ONE (18:03)
[2019-07-07] MEDS ORDERED: KETOROLAC TROMETHAMINE 30 MG/1 ML VIAL IM ONE (18:05)
[2019-07-07] MEDS: ACETAMINOPHEN 1000 MG/100 ML VIAL (NON FORMULARY) IVPB SCH (20:30)
[2019-07-08] MEDS ORDERED: KETOROLAC TROMETHAMINE 30 MG/1 ML VIAL IVPUSH PRN (00:01)
[2019-07-08] MEDS: ACETAMINOPHEN 1000 MG/100 ML VIAL (NON FORMULARY) IVPB SCH (02:38)
--- NOTE | 2019-07-08 08:00 | DS ---
Physical Exam: SUBJECTIVE: Patient seen and examined OBJECTIVE: Vital Signs Temperature 98.2 F 07/08/19 06:00 Pulse Rate 71 07/08/19 06:00 Respiratory Rate 19 07/08/19 06:00 Blood Pressure 140/83 07/08/19 06:00 O2 Sat by Pulse Oximetry (%) 94 L 07/08/19 06:00 PHYSICAL EXAM GENERAL: The patient is awake, alert, and fully oriented, in no acute distress. HEAD: Normal with no signs of trauma. EYES: PERRL, extraocular movements intact, sclera anicteric, conjunctiva clear. ENT: Ears normal, nares patent, oropharynx clear without exudates, moist mucous membranes. NECK: Trachea midline, full range of motion, supple. LUNGS: Breath sounds equal, clear to auscultation bilaterally, no wheezes, no crackles, no accessory muscle use. HEART: Regular rate and rhythm, S1, S2 without murmur, rub or gallop. ABDOMEN: Soft, nontender, nondistended, normoactive bowel sounds, no guarding, no rebound, no hepatosplenomegaly, no masses. EXTREMITIES: 2+ pulses, warm, well-perfused, no edema. NEUROLOGICAL: Cranial nerves II through XII grossly intact. Normal speech, gait not observed. PSYCH: Normal mood, normal affect. SKIN: Warm, dry, normal turgor, no rashes or lesions noted. LABS HOSPITAL COURSE: Date of Admission:07/07/19 Date of Discharge: 07/08/19 64 yo male POD #1 s/p open repair supraumbilical incarcerated hernia. Admitted to hospital secondary to low SpO2. Patient is morbidly obese, sleep apnea and typically has low saturation. He was transferred from PACU w/ cardiac moitoring , continuous pulse oximeter on. Remains 94% on 3L NC. Admitted for observation. He has jacy oob and ambulating. Voiding spontaneously. No events since surgery per RN notes. Resting comfortably. Pain managed well via preop ABD block. The discharge instructions and an oral pain management plan were reviewed with the patient. All questions answered. Above plan discussed with Dr. Riley and agreed. Minutes to complete discharge: 35 Visit type - Case Type Case Type: Scheduled
--- NOTE | 2019-07-08 09:07 | OP ---
DATE OF OPERATION: 07/07/2019 PREOPERATIVE DIAGNOSIS: Incisional hernia with incarcerated omentum. POSTOPERATIVE DIAGNOSIS: Incisional hernia with incarcerated omentum. PROCEDURE: Exploration, omentectomy, and repair of the hernia with mesh. SURGEON: Teresita Riley MD CREW CHIEF: KAMARI Jimenez ANESTHESIA: General. DESCRIPTION OF PROCEDURE: Under abdominal block, which was done earlier, the patient was brought to the operating room. Intravenous antibiotics, general anesthesia were administered. Previous incision, which was made, was re-opened where the patient either had a repair of the hernia or laparoscopic prostatectomy. The incarcerated omentum was dissected, and the hernia opening was isolated, and omentectomy was done. Peritoneum was from the abdominal wall all around to make sure there was no tissue between the fascia and the abdominal wall. And once it was confirmed, composite mesh was placed, which was then sutured to the fascia, and 2 other sutures were used on the caudal and the cephalad end. Subcutaneous tissue and skin were closed. Patient had a good repair and went to the recovery room in stable condition. TERESITA RILEY M.D. [id number]
[2019-07-08 09:23] VITALS: BP 136/79; PULSE 70; TEMP 98
[2019-07-08] MEDS ORDERED: HYDROCHLOROTHIAZIDE 12.5 MG CAPSULE (FP) PO SCH (10:00)
[2019-07-08] MEDS ORDERED: VALSARTAN 80 MG TABLET (UD) PO SCH (10:00)
[2019-07-08] MEDS ORDERED: ELVITEG/COB/EMTRI/TENOF (GENVOYA) TABLET (NF) PO SCH (10:00)
[2019-07-08] MEDS ORDERED: PATIENT'S OWN MEDICATION (NON-FORMULARY) (Valsartan/Hydrochlorothiazide [Valsartan-Hctz 80 PO SCH (10:00)
[2019-07-08] MEDS ORDERED: ASPIRIN 81 MG CHEWABLE TABLETS PO SCH (10:00)
--- NOTE | 2019-07-09 11:38 | PATH ---
Surgical Pathology Report Patient Name: VICTOR HUGO ALONSO [facility]. Rec. #: [id number] /Age/Gender: 1955 (Age: 64) / M Account: [id number] Location: [facility] Taken: 07/07/2019 Received: 07/08/2019 Reported: 07/09/2019 Physicians: Isrrael Riley M.D. Specimen(s) Received INCARCERATED OMENTUM Clinical History Incarcerated abdominal hernia Final Diagnosis INCARCERATED OMENTUM, EXCISION, ABDOMINAL HERNIA REPAIR: BENIGN OMENTAL ADIPOSE TISSUE. Electronically Signed Allie Vázquez M.D. Gross Description Received in formalin labeled "incarcerated omentum," is a 6.5 x 4.8 x 3.2 cm house watkins portion of fibromembranous tissue encapsulating yellow, lobulated adipose tissue. Sectioning reveals homogeneous yellow, smooth fat. No areas of hemorrhage or necrosis are identified. A product sales representative section is submitted in one cassette. /07/08/2019 saudi/07/08/2019
== END 2019-07-08 10:15 | disposition home or self-care (01) ==
LOC: JASU-SURG 10:34 → J4W 20:08 → JASU-SURG 07-08 10:15
PROVIDERS: ATTEND Surgery Vascular Surgery
PROC: 0WUF0JZ Supplement Abdominal Wall with Synthetic Substitute, Open Approach (ICD-10-PCS; 2019-07-07)
PROC: 0DBU0ZZ Excision of Omentum, Open Approach (ICD-10-PCS; principal; 2019-07-07 12:30)
DX: K43.0 Incisional hernia with obstruction, without gangrene (principal)
CPT/HCPCS: 94760; J0131

== ENCOUNTER 2020-10-07 23:28 | Emergency (ER) | payer OTHER ==
[2020-10-08] VITALS: TEMP 98; BMI 39.1
[2020-10-08 01:06] LABS: BASO % 0.6 % (0-2.0); EOS % 2.7 % (0-4.5); HEMATOCRIT 40.6 % (35.4-49); HEMOGLOBIN 13.6 GM/dL (11.7-16.9); MCH 33.7 pg (25.7-33.7); MCHC 33.5 g/dl (32.0-35.9); MEAN CELL VOLUME 100.4 fl (80-96); MEAN PLT VOLUME 9.6 fl (7.5-11.1); MONO % 10.3 % (3.8-10.2); NEUT % 51.4 % (42.8-82.8); PLATELET COUNT 167 K/MM3 (134-434); RBC 4.05 M/mm3 (4.00-5.60); RDW 13.1 % (11.9-15.9); WHITE BLOOD COUNT 6.4 K/mm3 (4.0-10.0)
[2020-10-08 01:18] LABS: INR 0.89 (0.83-1.09); PROTHROMBIN TIME (PATIENT) 10.8 SEC (9.7-13.0)
[2020-10-08 01:21] LABS: ACTIVATED PTT 27.5 SECONDS (25.2-36.5)
[2020-10-08 01:53] LABS: CHLORIDE 100 mmol/L (98-107); SODIUM 139 mmol/L (136-145)
[2020-10-08 01:55] LABS: ALBUMIN 3.2 g/dl (3.4-5.0); ANION GAP 5 MMOL/L (8-16); CALCIUM 8.5 mg/dL (8.5-10.1); CO2 35 mmol/L (21-32); GLUCOSE,RANDOM 139 mg/dL (74-106); MAGNESIUM 1.9 mg/dL (1.8-2.4)
[2020-10-08 01:58] LABS: SGOT/AST 29 U/L (15-37); SGPT/ALT 29 U/L (13-61)
[2020-10-08 01:59] LABS: CREATININE 1.5 mg/dL (0.55-1.3)
[2020-10-08 02:00] LABS: BILIRUBIN,TOTAL 0.3 mg/dL (0.2-1); TOT PROT 6.7 g/dl (6.4-8.2)
[2020-10-08 02:01] LABS: ALK PHOS 103 U/L (45-117)
[2020-10-08 02:04] LABS: N-TERMINAL BNP 317.6 pg/ml (5-125)
[2020-10-08] MEDS ORDERED: SODIUM CHLORIDE 1,000 ML IV STA (02:16)
[2020-10-08 03:44] VITALS: BP 116/76; PULSE 62
[2020-10-08 03:49] LABS: PH,URINE 5.5 (5.0-8.0); URINE APPEARANCE CLEAR; URINE BILIRUBIN NEGATIVE (NEGATIVE); URINE COLOR DK YELLOW; URINE GLUCOSE (UA) NEGATIVE (NEGATIVE); URINE KETONE TRACE (NEGATIVE); URINE LEUK ESTERASE NEGATIVE (NEGATIVE); URINE NITRITE NEGATIVE (NEGATIVE); URINE PROTEIN NEGATIVE (NEGATIVE)
[2020-10-08 04:16] LABS: URINE AMPHETAMINES NEGATIVE ng/ml (CUTOFF=500); URINE BARBITURATES NEGATIVE ng/ml (CUTOFF=200)
[2020-10-08 04:17] LABS: COCAINE, UR NEGATIVE ng/ml (CUTOFF=300); PHENCYCLIDINE,URINE NEGATIVE ng/ml (CUTOFF=25)
[2020-10-08 04:23] LABS: METHADONE, UR POSITIVE ng/ml (CUTOFF=300); OPIATES, URI POSITIVE ng/ml (CUTOFF=300); URINE BENZODIAZEPINES POSITIVE ng/ml (CUTOFF=200)
== END 2020-10-08 05:01 | disposition home or self-care (01) ==
LOC: JER 23:28
PROC: 3E0337Z Introduction of Electrolytic and Water Balance Substance into Peripheral Vein, Percutaneous Approach (ICD-10-PCS; principal; 2020-10-07)
DX: R40.4 Transient alteration of awareness (principal); R40.0 Somnolence; F11.90 Opioid use, unspecified, uncomplicated
CPT/HCPCS: 36415; 70450-TC; 71045-TC-FY; 80053; 80307; 81003; 82550; 82553; 83735; 83880; 84484; 85025; 85610; 85730; 93005; 93010; 99285-25; C9803; U0003; U0005

== ENCOUNTER 2021-07-14 11:23 | Emergency (ER) | payer OTHER ==
[2021-07-14 11:38] VITALS: BP 126/58; PULSE 89; TEMP 97.8; BMI 39.9
[2021-07-14] MEDS ORDERED: SOTROVIMAB 500 MG in SODIUM CHLORIDE 100 ML IVPB ONE (12:02)
== END 2021-07-14 15:42 | disposition home or self-care (01) ==
LOC: JCOVINFU 11:23
DX: U07.1 COVID-19 (principal)
CPT/HCPCS: 96374; 99284-25